=== PATIENT | female | born 1980 | race Caucasian/White ===

== ENCOUNTER 2016-08-13 16:42 | Inpatient (IN) | payer OTHER ==
--- NOTE | ~2016-08-13 | PA ---
Unit #: [id number] #: [id number] Patient: YAN LORA N [id number] [facility] [address] [place] [address] [id number] MR#: [id number] NAME: YAN LORA. ROOM: P173 Age: 36 Sex: F Admission Date: 08/13/2016 : 1980 Date of Assessment: Attending Physician: Caleb Alcantar M.D. Admitting Physician: Caleb Alcantar M.D. Primary Care Physician: Kentrell Morocho M.D. PSYCHIATRIC ASSESSMENT DATE OF SERVICE 08/13/2016. IDENTIFYING DATA Ms. Lora is a 36-year-old, single, white female who is a resident of [place], [place] and was self-referred to the hospital on a voluntary basis. CHIEF COMPLAINT "I'm a heroin addict and I'm just over it." HISTORY OF PRESENT ILLNESS Ms. Lora is a 36-year-old white female who was self-referred to the hospital stating that she has been addicted to heroin and she wants to get detox. She stated "I have been detoxing since yesterday." The patient reports the last use of heroin was yesterday morning post using 2 points of heroin 5 to 6 times a day for the last year and upon presentation, had a detox score of 18. She does report increasing depression, anxiety with feelings of hopelessness and helplessness, but denies any suicidal ideations, intent, or plan. SUBSTANCE ABUSE HISTORY The patient has extensive history of substance abuse and dependence including alcohol, cannabis, and opioids and amphetamine and currently opioids appears to be her drug of choice. PAST PSYCHIATRIC HISTORY The patient has had history of multiple inpatient psychiatric and chemical dependency treatment and has been hospitalized at [facility] in [facility] past, therefore currently, she is not active in any treatment program, is not seeing a psychiatrist, and not taking any psychotropic medications. PAST MEDICAL HISTORY Hepatitis C. ALLERGIES No known medication allergies. PERSONAL AND SOCIAL HISTORY A 36-year-old white female who reports that she lives at home with her boyfriend and has fairly decent social support system. MENTAL STATUS EXAMINATION Unit #: [id number] #: [id number] Patient: YAN LORA Young white female who was casually dressed with fair personal hygiene, appears to be in no acute distress or discomfort. She was awake and alert on interaction with intact orientation to time, place, and person. Her mood was anxious and depressed with a congruent affect. Her speech was slow and goal directed. She denies any suicidal or homicidal ideations, and also denies any auditory or visual hallucinations. Her insight and judgment remain significantly impaired. DIAGNOSTIC IMPRESSION Psychiatric: Opioid dependence, moderate and acute withdrawals; opioid-induced mood disorder. Medical: Hepatitis C. Stressors: Moderate psychosocial stressors. TREATMENT PLAN 1. The patient has presented with history of substance abuse and mood disorder, and has been decompensating and will need inpatient hospitalization for detoxification, and safety, and stabilization. We will start her back on her home medications. We will monitor response and make further adjustments as needed. 2. Supportive therapy was provided to the patient. 3. Safe, structured, and nourishing environment will be provided. ESTIMATED LENGTH OF STAY 5 to 7 days. ABILITY TO HELP SELF Limited. WILLINGNESS TO HELP SELF The patient appears to be willing to help self. STRENGTHS 1. Communicative. 2. Cooperative. PROBLEMS 1. Chronic dysphoric symptoms. 2. Poor social support system. DISCHARGE CRITERIA This will be contingent upon the patient's ability to go through detox without significant withdrawal symptoms as well as her ability to stay safe to herself, particularly after discharge from the hospital. Dictated by... Caleb Alcantar M.D. MICHAEL/rosina TD: 08/14/2016 13:31 JOB #: [id number] Unit #: [id number] #: [id number] Patient: YAN LORA PSYCHIATRIC ASSESSMENT Page 1 of 1 X Caleb Alcantar MD X PSYCHIATRIC ASSESSMENT
--- NOTE | ~2016-08-13 | DS ---
Unit #: [id number] #: [id number] Patient: YAN LORA [id number] [facility] [address] [place] [address] [id number] MR#: [id number] NAME: YAN LORA. ROOM: 73 Age: 36 Sex: F Admission Date: 08/13/2016 : 1980 Discharge Date: 08/16/2016 Attending Physician: Caleb Alcantar M.D. Primary Care Physician: Kentrell Morocho M.D. DISCHARGE SUMMARY IDENTIFYING DATA Ms. Lora is a 36-year-old white female, who was self-referred to the hospital. DISCHARGE DIAGNOSES Psychiatric: Opioid dependence, moderate and acute withdrawals; opioid-induced mood disorder. Medical: None. Stressors: Moderate psychosocial stressors. HISTORY OF PRESENT ILLNESS Please see initial psychiatric evaluation for details. PAST PSYCHIATRIC HISTORY Please see initial psychiatric evaluation for details. PAST MEDICAL HISTORY Please see initial psychiatric evaluation for details. HOSPITAL COURSE The patient was admitted to the adult chemical dependency unit at [facility] and was oriented to the hospital environment. Routine p.r.n. medications were initiated, and she was started on the detox protocol and was closely monitored. She was taking the medications regularly and was tolerating them fairly well and was able to show a decent and therapeutic response with improvement in depression and anxiety and as such, it was decided that she will be discharged home and will continue treatment on an outpatient basis. DISCHARGE MEDICATIONS None. DISCHARGE CONDITION Stable. PROGNOSIS Fair. Dictated by... Brayan Gao/ricardal Unit #: [id number] #: [id number] Patient: YAN LORA TD: 08/17/2016 07:49 JOB #: [id number] DISCHARGE SUMMARY Page 1 of 1 X Caleb Alcantar MD X DISCHARGE SUMMARY
--- NOTE | ~2016-08-13 | PN ---
Unit #: [id number] #: [id number] Patient: YAN LORA [id number] [facility] [address] [place] [address] [id number] MR#: [id number] NAME: YAN LORA. ROOM: P173 Age: 36 Sex: F Admission Date: 08/13/2016 : 1980 Attending Physician: Caleb Alcantar M.D. Admitting Physician: Caleb Alcantar M.D. Primary Care Physician: Brayan Flower PROGRESS NOTES DATE August 15, 2016 DISCUSSION Ms. Lora is a 36-year-old white female, with substance abuse and mood disorder, who was seen today and chart was reviewed and the case was discussed with the staff. The patient has been anxious, withdrawn, but has not shown any agitation and appears to be doing much better and is cooperative with the treatment recommendations and has been taking the medications and tolerating them fairly well with no reported side effects. MENTAL STATUS EXAMINATION Young white female, who was casually dressed with fair personal hygiene and appears to be in no acute distress or discomfort. She was awake and alert on interaction with intact orientation. Her mood was anxious with a congruent affect. Her speech is slow and goal-directed. The patient denies any suicidal or homicidal ideations, and also denies any auditory or visual hallucinations. Her insight and judgment remain slightly impaired. TREATMENT PLAN We will continue her on her current medications and treatment protocol, and will monitor her response, and make further adjustments as needed. Dictated by... Brayan Gao/renetta TD: 08/16/2016 09:33 JOB #: [id number] Unit #: [id number] #: [id number] Patient: YAN LORA MONTSECHRISS PROGRESS NOTES Page 1 of 1 X Caleb Alcantar MD PROGRESS NOTE
--- NOTE | ~2016-08-13 | PN ---
Unit #: [id number] #: [id number] Patient: YAN LORA [id number] [facility] [address] [place] [address] [id number] I MR#: [id number] NAME: YAN LROA. ROOM: P173 Age: 36 Sex: F Admission Date: 08/13/2016 : 1980 Attending Physician: Caleb Alcantar M.D. Admitting Physician: Caleb Alcantar M.D. Primary Care Physician: Brayan Flower PROGRESS NOTES DATE August 14, 2016 DISCUSSION Ms. Lora is a 36-year-old white female with substance abuse and mood disorder who was seen today, chart was reviewed and case was discussed with the staff. She was lying in bed and was seen to anxious and withdrawn and in distress. maintaining a positive attitude. Patient has been taking her medications and tolerating them fairly well with no reported side effects. MENTAL STATUS EXAMINATION Young white female who was casually dressed with fair personal hygiene and appears to be in no acute distress or discomfort. The patient was awake and alert on interaction with intact orientation. Her mood was anxious with a congruent affect. Patient denies any suicidal or homicidal ideation. Her insight and judgment remain slightly impaired. TREATMENT PLAN Will continue on current medications and treatment protocol. We will monitor her response to medication and make further adjustments as needed. We will continue to follow up. Dictated by... Brayan Gao TD: 08/15/2016 11:25 JOB #: [id number] Unit #: [id number] #: [id number] Patient: YAN LORA PROGRESS NOTES Page 1 of 1 X Caleb Alcantar MD PROGRESS NOTE
--- NOTE | ~2016-08-13 | HP ---
Unit #: [id number] #: [id number] Patient: YAN GONZALEZ [id number] [place] [address] [id number] I MR#: [id number] NAME: YAN GONZALEZ. ROOM: 73 Age: 36 Sex: F Admission Date: 08/13/2016 : 1980 Attending Physician: Caleb Alcantar M.D. Admitting Physician: Caleb Alcantar M.D. Primary Care Physician: Kentrell Morocho M.D. HISTORY AND PHYSICAL HISTORY OF PRESENT ILLNESS The patient is a 36-year-old female admitted to [facility] on 08/13/2016 to withdrawal from heroin. PAST MEDICAL HISTORY 1. Polysubstance abuse. 2. Nicotine dependence. PAST SURGICAL HISTORY Bilateral tubal ligation. ALLERGIES No known drug allergies. SOCIAL HISTORY She is unemployed. She lives with her fiance. Smokes 1 pack of cigarettes daily and uses heroin and methamphetamine on daily basis. FAMILY HISTORY Noncontributory. REVIEW OF SYSTEMS CONSTITUTIONAL: No fever or chills. HEENT: Denies any sore throat, ear pain or runny nose. CARDIOVASCULAR: Denies chest pain, irregular heart rhythm or palpitations. CHEST: Denies shortness of breath or cough. No hemoptysis. GASTROINTESTINAL: Denies nausea, vomiting, diarrhea or chronic constipation. ENDOCRINE: Denies history of increased thirst or urination. No recent significant weight loss or gain. GENITOURINARY: Denies dysuria, frequency, or hematuria. SKIN: Denies any rashes. HEMATOLOGIC: Denies history of increased bleeding or bruising. MUSCULOSKELETAL: Denies any hot, swollen joints. No generalized muscle pain. NEUROLOGIC: Denies problems with vision or speech. No frequent, severe headaches. No numbness, tingling or weakness in any extremities. Denies loss of bladder or bowel control. CURRENT MEDICATIONS The patient is not on any home medications. PHYSICAL EXAMINATION Unit #: [id number] #: [id number] Patient: YAN GONZALEZ GENERAL: She is awake, alert, oriented, in no acute distress. VITAL SIGNS: Temperature 98.9, heart rate 107, respirations 18, blood pressure 139/98. HEIGHT: 5 feet 7. WEIGHT: 120 pounds. SKIN: Warm and dry without rash or lesion. HEENT: Normocephalic. TMs not viewed. Oral and nasal passages clear. Conjunctivae clear. PERRLA. EOMs intact. NECK: Supple without lymphadenopathy or thyromegaly. HEART: Regular rate and rhythm without murmur. LUNGS: Clear. ABDOMEN: Soft, nontender. : Not done. EXTREMITIES: No evidence of cyanosis, clubbing or edema. Moves all without focal deficit. NEUROLOGICAL: Grossly within normal limits. Cranial Nerves: II: Visual balderas are intact. III, IV AND : Extraocular movements are intact. Pupils are equal, round and reactive to light. V: Facial sensation is grossly normal. VII: Facial movements and expression are normal. VIII: Auditory acuity grossly intact. IX, X: Uvula is midline. Phonation is normal. XI: Patient shrugs shoulders and turns head normally. XII: Tongue protrudes in the midline. Sensory and Motor Function: Sensory and motor sensation is grossly normal. Motor: moves all extremities well. Coordination: Gait is normal. Deep Tendon Reflexes: Intact. IMPRESSION 1. Psychiatric admission. 2. Polysubstance use. 3. Nicotine dependence. RECOMMENDATIONS PSYCHIATRIC: Per psychiatrist. MEDICAL: No contraindications to participate in facility's activities. MEDICAL PROGNOSIS Good. MEDICAL CONDITION Stable. Dictated by... Tyrel Garcia/samantha TD: 08/14/2016 22:02 JOB #: [id number] Unit #: [id number] #: [id number] Patient: YAN GONZALEZ HISTORY AND PHYSICAL Page 1 of 1 X JOYCE ARCHULETA APRN HISTORY AND PHYSICAL
[~2016-08-13 16:42] MED LIST: BACLOFEN10 MG PO; BACTRIM DS TABL1 TAB PO; DOXYCYCLINE PO; FLAGYL250 M1 PO; IBUPROFEN PO; KEFLEX PO; LORTAB 10/500 T1 TAB PO; TOPROL XL PO; VICODIN 5/500 T1 TAB PO; [UNRECOGNIZED DRUG - REMARK]
[2016-08-14 10:50] LABS: BASOPHIL# 0.1 X10e3 (0-0.3); BASOPHIL% 1.1 % (0-2.5); DIFF IND NO; EOSINOPHIL# 0.1 X10e3 (0-0.7); EOSINOPHIL% 1.1 % (0.0-7.0); HEMATOCRIT 33.8 % (35.0-45.0); HEMOGLOBIN 10.5 gm/dL (12.0-16.0); LYMPHOCYTE# 2.2 X10e3 (1.0-3.5); LYMPHOCYTE% 25.2 % (17.0-45.0); MEAN CELL VOLUME 75.5 FL (83-96); MEAN CORPUSCULAR HEMOGLOBIN 23.4 PG (28-34); MEAN PLATELET VOLUME 10.2 FL (6.5-11.5); MONOCYTE# 0.6 X10e3 (0-1.0); MONOCYTE% 7.4 % (3.0-12.0); NEUTROPHIL# 5.7 X10e3 (1.5-7.1); NEUTROPHIL% 65.2 % (40-75); PLATELET COUNT 318 X10e3 (140-420); RED BLOOD COUNT 4.48 X10e (3.90-5.30); RED CELL DISTRIBUTION WIDTH 16.4 % (11.0-15.5); WHITE BLOOD COUNT 8.7 X10e3 (4.0-10.5)
[2016-08-14 11:27] LABS: URINE APPEARANCE CLEAR; URINE BILIRUBIN NEG (NEG); URINE BLOOD 3+ (NEG); URINE COLOR YELLOW; URINE GLUCOSE NEG (NEG); URINE KETONE NEG (NEG); URINE LEUKOCYTE ESTERASE TRACE (NEG); URINE NITRATE NEG (NEG); URINE PROTEIN NEG (NEG); URINE SPECIFIC GRAVITY 1.014 (1.003-1.035)
[2016-08-14 11:30] LABS: U HYALINE CASTS AUWI 0-2 /[LPF]; URBCS1 AUWI 25-50 /[HPF] (0-2); URINE BACTERIA AUWI NEG (NEGATIVE); URINE SQUAMOUS EPITHELIAL CELL OCC /[HPF]; UWBCS1 AUWI 0-2 (0-5)
[2016-08-14 11:58] LABS: ALBUMIN SERUM 4.1 g/dL (3.5-5.0); BILIRUBIN,TOTAL 0.4 mg/dL (0.2-2.0); BUN/CREATININE RATIO 17.14; CALCIUM SERUM 9.5 mg/dL (8.4-10.2); CREATININE SERUM 0.7 mg/dL (0.6-1.4); POTASSIUM 4.5 mmol/L (3.5-5.1); PROTEIN TOTAL SERUM 7.7 g/dL (6.0-8.3)
[2016-08-14 12:04] LABS: AMPHETAMINE POS (NEG); BARBITURATES NEG (NEG); BENZODIAZEPINES NEG (NEG); COCAINE NEG (NEG); MARIJUANA NEG (NEG); OPIATES POS (NEG); TRICYCLIC ANTIDEPRESSANTS NEG (NEG); U METHADONE NEG (NEG)
== END 2016-08-16 11:25 | disposition home or self-care (01) | DRG 897 ==
LOC: P1E 16:42
PROVIDERS: Psychiatry & Neurology Psychiatry
PROC: HZ2ZZZZ Detoxification Services for Substance Abuse Treatment (ICD-10-PCS; principal; 2016-08-13)
DX: F11.23 Opioid dependence with withdrawal (principal); F11.24 Opioid dependence with opioid-induced mood disorder; B19.20 Unspecified viral hepatitis C without hepatic coma; F17.210 Nicotine dependence, cigarettes, uncomplicated
CPT/HCPCS: 80053; 80307; 81003; 84703; 85025; 86592

== ENCOUNTER 2016-11-16 02:27 | Emergency (ER) | payer OTHER ==
--- NOTE | ~2016-11-16 | CT4 ---
[facility] A Service of [facility] RADIOLOGY TEXT RESULTS PATIENT: YAN GONZALEZ LOCATION: [facility] : [birth year] UNIT #: [id number] AGE: [address]: Drake Hagen MD SEX: F ORDER DR: [id number] [facility] [address] [facility] [place], [place] [address] [id number] MR#: [id number] Acc #: [id number] NAME: YAN GONZALEZ. : 1980 SEX: F STUDY DATE/TIME: 11/16/2016 4:06 UNIT: [facility] ROOM: STUDY DESCRIPTION: CT Abd and Pelv Wo Cont Attending Physician: Drake Hagen M.D. Ordering Physician: Drake Hagen M.D. Primary Care Physician: Mikala Pugh M.D. MEDICAL IMAGING REPORT This report is preliminary unless electronic signature is present EXAM CT abdomen and pelvis, noncontrast, kidney stone protocol, 11/16/2016. HISTORY 36-year-old female in the ED complaining of right-side abdomen pain and back pain beginning last evening. TECHNIQUE CT examination of the abdomen and pelvis was performed without oral or IV contrast using kidney stone protocol. This CT exam was performed with one or more of the following radiation dose reduction techniques: Automatic exposure control, adjustment of mA and/or kV according to patient size, and iterative reconstruction. ABDOMEN FINDINGS 3 mm nonobstructing calculus in the left mid kidney. Kidneys, ureters and bladder are otherwise negative. No evidence of urinary obstruction. Liver, pancreas and spleen are normal in size and appearance without contrast. Nondistended gallbladder. No bile duct dilatation. Small bowel and colon are normal in caliber and appearance, as imaged. The appendix is not identified. PELVIS FINDINGS Uterus, ovaries, bladder and rectum are within normal limits. IMPRESSION 1. No acute abnormality within the abdomen or pelvis. 2. Nonobstructing 3 mm calculus in the left mid kidney. Dictated by... Dez Daniels M.D. [facility] A Service of [facility] RADIOLOGY TEXT RESULTS PATIENT: YAN GONZALEZ LOCATION: [facility] : 84 UNIT #: [id number] AGE: [address]: Drake Hagen MD SEX: F ORDER DR: THIS IS AN ELECTRONICALLY VERIFIED REPORT Dez Daniels M.D. at 11/16/2016 10:01 PM Anne TD: 11/16/2016 12:36 JOB #: [id number] MEDICAL IMAGING REPORT Page 1 of 1 COPY
[2016-11-16 04:01] LABS: URINE SOURCE CLEAN CATCH
[2016-11-16 04:05] LABS: BASOPHIL# 0.1 X10e3 (0-0.3); BASOPHIL% 0.5 % (0-2.5); DIFF IND NO; EOSINOPHIL# 0.1 X10e3 (0-0.7); EOSINOPHIL% 0.8 % (0.0-7.0); HEMATOCRIT 31.6 % (35.0-45.0); HEMOGLOBIN 10.6 gm/dL (12.0-16.0); LYMPHOCYTE# 2.1 X10e3 (1.0-3.5); LYMPHOCYTE% 19.5 % (17.0-45.0); MEAN CELL VOLUME 78.7 FL (83-96); MEAN CORPUSCULAR HEMOGLOBIN 26.3 PG (28-34); MEAN CORPUSCULAR HGB CONC 33.4 g/dL (30-36); MEAN PLATELET VOLUME 9.7 FL (6.5-11.5); MONOCYTE# 1.5 X10e3 (0-1.0); MONOCYTE% 13.5 % (3.0-12.0); NEUTROPHIL# 7.1 X10e3 (1.5-7.1); NEUTROPHIL% 65.7 % (40-75); PLATELET COUNT 264 X10e3 (140-420); RED BLOOD COUNT 4.02 X10e (3.90-5.30); RED CELL DISTRIBUTION WIDTH 18.1 % (11.0-15.5); WHITE BLOOD COUNT 10.8 X10e3 (4.0-10.5)
[2016-11-16 04:05] LABS: URINE APPEARANCE CLEAR; URINE BLOOD 2+ (NEG); URINE COLOR DK YELLOW; URINE GLUCOSE NEG (NEG); URINE KETONE 1+ (NEG); URINE LEUKOCYTE ESTERASE NEG (NEG); URINE NITRATE POS (NEG); URINE PROTEIN 2+ (NEG); URINE SPECIFIC GRAVITY 1.031 (1.003-1.035)
[2016-11-16 04:08] LABS: CULTURE INDICATED? YES; URINE BACTERIA AUWI 4+ (NEGATIVE); URINE SQUAMOUS EPITHELIAL CELL OCC /[HPF]
[2016-11-16 04:18] LABS: URINE BILIRUBIN NEG (NEG)
[2016-11-16 04:29] LABS: CREATININE SERUM 0.5 mg/dL (0.6-1.4); GLOM FILT RATE Estimated 126.3 mL/min (>60); POTASSIUM 3.1 mmol/L (3.5-5.1)
== END 2016-11-16 05:12 | disposition home or self-care (01) ==
LOC: CED 02:27
PROVIDERS: Emergency Medicine
DX: N30.00 Acute cystitis without hematuria (principal); E87.6 Hypokalemia; I10 Essential (primary) hypertension; Z98.51 Tubal ligation status
CPT/HCPCS: 36415; 74176; 80048; 81003; 84703; 85025; 87086; 87088; 87186; 96361; 96374; 96375; 99284; J1885; J2405